=== PATIENT | female | born 1970 | race African-American/Black ===

== ENCOUNTER 2017-01-17 10:18 | Emergency (ER) | payer SELFPAY ==
[~2017-01-17] VITALS: Ht 167.6 cm; Wt 82.0 kg
[2017-01-17 11:18] VITALS: BP 128/75
== END 2017-01-17 12:10 | disposition home or self-care (01) ==
LOC: ER 12:09
DX: L03.213 Periorbital cellulitis (principal); F17.210 Nicotine dependence, cigarettes, uncomplicated; Z98.890 Other specified postprocedural states
CPT/HCPCS: 99282